=== PATIENT | female | born 1965 | race African-American/Black ===

== ENCOUNTER 2018-02-12 10:42 | Emergency (ER) | payer MEDICAID, OTHER ==
[~2018-02-12] VITALS: Ht 162.6 cm; Wt 90.0 kg
[~2018-02-12 10:42] MED LIST: ACET-3161 GT; ALBU18HF2 IH; ATOR10TA PO
[2018-02-12] MEDS ORDERED: ONDANSETRON HCL 4MG/2ML INJ IV STA (11:09)
[2018-02-12] MEDS ORDERED: SODIUM CHLORIDE 0.9% 1,000 ML IV ONE ×2 (11:09→13:00)
[2018-02-12 12:21] LABS: BASOPHILS % 0.4 % (0.0-2.0); EOSINOPHILS % 3.2 % (0.0-5.0); HEMATOCRIT. 40.8 % (36.0-48.0); HEMOGLOBIN. 13.8 g/dL (12.0-16.0); LYMPHOCYTES % 39.6 % (20.0-50.0); MEAN CORPUSCULAR HEMOGLOBIN 32.6 pg (28.0-32.0); MEAN CORPUSCULAR VOLUME 96.2 fL (81.0-99.0); MONOCYTES % 9.4 % (2.0-8.0); NEUTROPHILS % 47.4 % (40.0-76.0); PLATELET 301 x1000/uL (130-400); RED BLOOD CELL COUNT 4.24 mill/uL (4.2-5.4); RED CELL DISTRIBUTION WIDTH 13.6 % (11.6-14.6)
[2018-02-12 12:24] LABS: INR 1.1; PROTHROMBIN TIME 10.6 sec (9.1-11.1)
[2018-02-12 12:29] LABS: CLARITY URINE TURBID (CLEAR); COLOR URINE DARK YELLOW (YELLOW); KETONES URINE TRACE (NEGATIVE); LEUKOCYTE ESTERASE URINE TRACE (NEGATIVE); NITRITE URINE NEGATIVE (NEGATIVE); OCCULT BLOOD URINE 3+ (NEGATIVE); PH URINE 5.5 (4.5-8.0); PROTEIN URINE TRACE (NEGATIVE); SPECIFIC GRAVITY URINE 1.021 (1.005-1.030)
[2018-02-12 12:31] LABS: CHLORIDE 105 mEq/L (98-107); ETHANOL BLOOD < 10 mg/dL
[2018-02-12 12:35] LABS: AMMONIA 24 uMol/L (<32)
[2018-02-12 13:07] LABS: HCG SCREEN NEGATIVE
[2018-02-12 13:12] LABS: *AMPHETAMINES SCREEN URINE NEGATIVE (NEGATIVE); *BARBITURATES SCREEN URINE NEGATIVE (NEGATIVE); *BENZODIAZEPINES SCREEN URINE NEGATIVE (NEGATIVE); *COCAINE SCREEN URINE NEGATIVE (NEGATIVE); METHADONE URINE SCREEN NEGATIVE (NEGATIVE)
[2018-02-12 13:13] LABS: CANNABINOID URINE SCREEN NEGATIVE (NEGATIVE); OPIATES URINE SCREEN NEGATIVE (NEGATIVE); PHENCYCLIDINE URINE SCREEN NEGATIVE (NEGATIVE)
[2018-02-12] MEDS ORDERED: KETOROLAC 30MG/ML VIAL IV ONE (13:30)
[2018-02-12 15:27] VITALS: BP 135/68
== END 2018-02-12 15:47 | disposition home or self-care (01) ==
LOC: ER 11:24
DX: R55 Syncope and collapse (principal); E86.0 Dehydration; K82.4 Cholesterolosis of gallbladder; H10.022 Other mucopurulent conjunctivitis, left eye; R00.1 Bradycardia, unspecified; J45.909 Unspecified asthma, uncomplicated; Z88.5 Allergy status to narcotic agent; Z88.0 Allergy status to penicillin; Z98.890 Other specified postprocedural states; Z86.19 Personal history of other infectious and parasitic diseases; Z90.49 Acquired absence of other specified parts of digestive tract
CPT/HCPCS: 36415; 71045; 76705; 80053; 80305; 81003; 81025; 82140; 82962; 83690; 83880; 84484; 84703; 85025; 85610; 93005; 96361; 96374; 96375; 99285; G0482; J1885; J2405; J7030

== ENCOUNTER 2018-05-14 12:24 | Inpatient (IN) | payer OTHER, MEDICAID ==
[~2018-05-14] VITALS: Ht 162.6 cm; Wt 102.1 kg
[2018-05-14] MEDS ORDERED: ACETAMINOPHEN 325MG TABLET ONE (12:41)
[2018-05-14] MEDS ORDERED: ACETAMINOPHEN 325MG TABLET PO STA (16:23)
[2018-05-14] MEDS ORDERED: SODIUM CHLORIDE 0.9% 1000ML BAG (SEPSIS BOLUS) IV ONE (16:30)
[2018-05-14 17:09] LABS: BASOPHILS % 0.2 % (0.0-2.0); EOSINOPHILS % 0.8 % (0.0-5.0); HEMATOCRIT. 41.5 % (36.0-48.0); HEMOGLOBIN. 13.9 g/dL (12.0-16.0); LYMPHOCYTES % 18.5 % (20.0-50.0); MEAN CORPUSCULAR HEMOGLOBIN 31.8 pg (28.0-32.0); MEAN CORPUSCULAR VOLUME 95.2 fL (81.0-99.0); MEAN PLATELET VOLUME 7.4 fl (7.4-10.4); MONOCYTES % 11.5 % (2.0-8.0); PLATELET 298 x1000/uL (130-400); RED BLOOD CELL COUNT 4.36 mill/uL (4.2-5.4); RED CELL DISTRIBUTION WIDTH 14.2 % (11.6-14.6)
[2018-05-14 17:14] LABS: CHLORIDE 103 mEq/L (98-107)
[2018-05-14 17:15] LABS: INR 1.1; PROTHROMBIN TIME 11.1 sec (9.1-11.1)
[2018-05-14] MEDS ORDERED: ALBUTEROL (0.083%) 2.5MG/3ML NEB HHN STA (17:18)
[2018-05-14] MEDS ORDERED: METHYLPREDNISOLONE SOD SUCC 125 MG/2 ML VIAL IV STA (17:18)
[2018-05-14] MEDS ORDERED: IPRATROPIUM BROMIDE (0.02%) 0.5MG/2.5ML NEB HHN STA (17:18)
[2018-05-14] MEDS ORDERED: ONDANSETRON HCL 4MG/2ML INJ IV ONE (17:30)
[2018-05-14] MEDS ORDERED: LEVOFLOXACIN 500MG PREMIX 100 ML IV ONE (17:30)
[2018-05-14] MEDS ORDERED: MAGNESIUM/ALUMINUM HYDROXIDE/SIMETHICONE 30ML UDC PO PRN (21:15)
[2018-05-14] MEDS ORDERED: GUAIFENESIN 200MG/10ML SUGAR FREE UDC PO PRN (21:15)
[2018-05-14] MEDS ORDERED: IPRATROPIUM/ALBUTEROL 0.5-3(2.5)MG/3ML NEB INH PRN (21:15)
[2018-05-14] MEDS ORDERED: CLONIDINE 0.1MG TABLET PO PRN (21:15)
[2018-05-14] MEDS ORDERED: ACETAMINOPHEN 325MG TABLET PO PRN (21:15)
[2018-05-14] MEDS: ONDANSETRON HCL 4MG/2ML INJ IV PRN (21:52)
[2018-05-14 22:20] LABS: CLARITY URINE CLEAR (CLEAR); COLOR URINE YELLOW (YELLOW); KETONES URINE NEGATIVE (NEGATIVE); LEUKOCYTE ESTERASE URINE NEGATIVE (NEGATIVE); NITRITE URINE NEGATIVE (NEGATIVE); OCCULT BLOOD URINE TRACE (NEGATIVE); PH URINE 7.5 (4.5-8.0); PROTEIN URINE NEGATIVE (NEGATIVE); SPECIFIC GRAVITY URINE 1.016 (1.005-1.030)
[2018-05-15] MEDS: ONDANSETRON HCL 4MG/2ML INJ IV PRN ×2 (02:47→13:39)
[2018-05-15] MEDS: SODIUM CHLORIDE 0.9% INJ 3ML FLUSH IVF SCH ×3 (06:00→21:27)
[2018-05-15] MEDS ORDERED: FERR-71 PO (10:51)
[2018-05-15] MEDS ORDERED: ALBU18HF2 IH (10:51)
[2018-05-15 11:00] VITALS: BP 120/60
[2018-05-15] MEDS: IPRATROPIUM/ALBUTEROL 0.5-3(2.5)MG/3ML NEB HHN SCH ×3 (11:04→21:05)
[2018-05-15 12:31] VITALS: BP 121/78
[2018-05-15] MEDS: METHYLPREDNISOLONE SOD SUCC 125 MG/2 ML VIAL IV SCH ×2 (13:38→21:27)
[2018-05-15] MEDS: GUAIFENESIN 600MG ER TABLET PO SCH ×2 (13:39→21:27)
[2018-05-15] MEDS ORDERED: POTASSIUM CHLORIDE 20MEQ TABLET SR PO NR (16:15)
[2018-05-15 16:26] VITALS: BP 118/51
[2018-05-15] MEDS ORDERED: LEVOFLOXACIN 500MG PREMIX 100 ML IV SCH (18:00)
[2018-05-15 20:00] VITALS: BP 111/68
[2018-05-16] VITALS: BP 124/69
[2018-05-16] MEDS: IPRATROPIUM/ALBUTEROL 0.5-3(2.5)MG/3ML NEB HHN SCH ×5 (00:18→15:15)
[2018-05-16 04:00] VITALS: BP 121/63
[2018-05-16] MEDS: SODIUM CHLORIDE 0.9% INJ 3ML FLUSH IVF SCH ×3 (05:27→13:39)
[2018-05-16] MEDS: METHYLPREDNISOLONE SOD SUCC 125 MG/2 ML VIAL IV SCH ×2 (05:27→13:39)
[2018-05-16 08:00] VITALS: BP 138/72
[2018-05-16] MEDS: GUAIFENESIN 600MG ER TABLET PO SCH (08:24)
[2018-05-16] MEDS ORDERED: MAGNESIUM 2 G PREMIX 50 ML IV NR (10:00)
[2018-05-16 12:00] VITALS: BP 131/61
[2018-05-16 14:46] VITALS: BP 131/61
== END 2018-05-16 15:41 | disposition home or self-care (01) | DRG 720 ==
LOC: ER 12:24 → EDBEDREQ 16:26 → 8WST 17:52 → EDBEDREQSVC 17:58 → EDBEDREQTM 17:58 → EDBEDREQ 17:58 → ENRESERV 05-15 08:41
PROVIDERS: ADMIT Internal Medicine; ATTEND Internal Medicine
DX: A41.9 Sepsis, unspecified organism (principal); J18.9 Pneumonia, unspecified organism; E87.6 Hypokalemia; J20.9 Acute bronchitis, unspecified; J45.901 Unspecified asthma with (acute) exacerbation; Z98.891 History of uterine scar from previous surgery; Z82.5 Family history of asthma and other chronic lower respiratory diseases; Z88.0 Allergy status to penicillin; Z88.5 Allergy status to narcotic agent
CPT/HCPCS: 36415; 71045; 80051; 83605; 83735; 83880; 84145; 84484; 86850; 86900; 93005; 94640; 96365; 96375; 99291; J1956; J2405; J2930; J3475; J7030; J7050; J7620

== ENCOUNTER 2019-02-06 11:40 | Emergency (ER) | payer MEDICAID ==
[~2019-02-06] VITALS: Ht 149.9 cm; Wt 77.0 kg
[~2019-02-06 11:40] MED LIST changes: -ACET-3161 GT; -ATOR10TA PO; +FERR-71 PO
[2019-02-06 13:02] LABS: EOSINOPHILS % 2.4 % (0.0-5.0); HEMATOCRIT. 39.1 % (36.0-48.0); HEMOGLOBIN. 13.3 g/dL (12.0-16.0); MEAN CORPUSCULAR HEMOGLOBIN 32.4 pg (28.0-32.0); MEAN CORPUSCULAR VOLUME 95.3 fL (81.0-99.0); MEAN PLATELET VOLUME 7.2 fl (7.4-10.4); MONOCYTES % 13.1 % (2.0-8.0); NEUTROPHILS % 51.5 % (40.0-76.0); PLATELET 267 x1000/uL (130-400); RED CELL DISTRIBUTION WIDTH 14.2 % (11.6-14.6)
[2019-02-06 13:12] LABS: CHLORIDE 104 mEq/L (98-107)
[2019-02-06 14:30] VITALS: BP 145/78
== END 2019-02-06 14:48 | disposition home or self-care (01) ==
LOC: ER 13:30
DX: R55 Syncope and collapse (principal); R07.89 Other chest pain; D64.9 Anemia, unspecified; J45.909 Unspecified asthma, uncomplicated; Z90.49 Acquired absence of other specified parts of digestive tract; Z98.890 Other specified postprocedural states; Z88.0 Allergy status to penicillin; Z88.5 Allergy status to narcotic agent
CPT/HCPCS: 36415; 71045; 83880; 84484; 93005; 99284